=== PATIENT | female | born 1945 | race Caucasian/White ===

== ENCOUNTER 2016-03-31 02:41 | Inpatient (IN) | payer OTHER ==
[2016-03-26 12:58] LABS: MANUAL DIFF NEEDED? NO; URINE MICRO REVIEW NEEDED? NO; URINE SOURCE CLEAN CATCH
[2016-03-26 13:07] LABS: BILIRUBIN URINE NEGATIVE (NEGATIVE); BLOOD URINE NEGATIVE (NEGATIVE); COLOR YELLOW; GLUCOSE URINE NEGATIVE (NEGATIVE); LEUKOCYTES URINE NEGATIVE (NEGATIVE); NITRITE URINE NEGATIVE (NEGATIVE); PH URINE 5.5; PROTEIN URINE TRACE mg/dL (NEGATIVE); SP GRAVITY URINE 1.031; TURBIDITY URINE HAZY (CLEAR); UROBILINOGEN URINE NORMAL (NORMAL)
[2016-03-26 13:11] LABS: BASO% 0.7 % (0.0-0.8); EOS# 0.27 X1000 (0.0-0.7); EOS% 4.4 % (0.0-10.0); HEMATOCRIT 43.8 % (37.0-47.0); HEMOGLOBIN 14.4 g/dL (12.0-16.0); LYMPH# 1.02 X1000 (1.2-3.4); LYMPH% 16.7 % (20.5-51.1); MCHC 32.9 g/dL (33-37); MCV 103.5 FL (81-99); MONO# 0.44 X1000 (0.11-0.59); MONO% 7.2 % (1.7-9.3); MPV 10.1 FL (7.4-10.4); PLT 226 X1000 (130-400); RBC 4.23 XMIL (4.2-5.4)
[2016-03-26 13:13] LABS: UR EPITHELIAL CELLS >10 /HPF (<10); URINE BACTERIA 2+ /HPF; URINE RBC <10 /HPF (<10); URINE WBC <10 /HPF (<10)
[2016-03-26 13:17] LABS: INR 0.97; PROTIME 10.3 Seconds (9.2-11.7); PTT 23.3 Seconds (22.0-36.0)
[2016-03-26 13:24] LABS: AGAP 12; BUN 15 mg/dL (8-22); CALCIUM 8.9 mg/dL (8.8-10.2); CHLORIDE 102 mmol/L (98-107); COSMO 284; POTASSIUM 4.3 mmol/L (3.5-5.1); SODIUM 141 mmol/L (136-145); TCO2 27 mmol/L (25-35)
--- NOTE | 2016-03-27 05:28 | EKG Report ---
Test Performed on : 03/26/2016 12:52:19 PM Test Reason : PAT Blood Pressure : / mmHG Vent. Rate : 075 BPM Atrial Rate : 075 BPM P-R Int : 156 ms QRS Dur : 078 ms QT Int : 424 ms P-R-T Axes : 069 046 070 degrees QTc Int : 473 ms Normal sinus rhythm. Nonspecific T wave abnormality - flat in AVL Nonspecific ST and T wave abnormality V1-V2 (no compare available) - clinical correlation recommended [facility] EKG No previous ECGs available Confirmed by Rusty Oshea DO ([id number]) on 03/30/2016 3:24:39 PM
[2016-03-31] MEDS ORDERED: REGLAN ONE (11:23)
[2016-03-31] MEDS ORDERED: COLACE ONE (11:23)
[2016-03-31] MEDS ORDERED: PEPCID ONE ×2 (11:23→11:44)
[2016-03-31] MEDS ORDERED: LYRICA ONE (11:23)
[2016-03-31] MEDS ORDERED: LR 1,000 ML ONE ×2 (11:24→16:23)
[2016-03-31] MEDS ORDERED: KEFZOL 1 GM/D5W 50 ML ONE (11:24)
--- NOTE | 2016-03-31 11:44 | HISTORY AND PHYSICAL ---
CHIEF COMPLAINT: Left knee pain. HISTORY OF PRESENT ILLNESS: This is a 70-year-old female with a history of gradually increasing pain in her left knee. She had an ORIF of her left patella about 12 years ago. She states it worked well in the beginning but the knee became more severely painful as the time went on. She was evaluated in the office and found to need a left total knee arthroplasty. The surgical procedure, as well as risks and benefits were explained. The patient at this time is ready to proceed. ALLERGIES: Not allergic to any medications. SERIOUS ILLNESSES: None. PAST SURGERIES: Cataract, left patella, back surgery, hysterectomy, appendectomy, and hernia. REGULAR MEDICATIONS: She takes vitamins and supplements but no prescription medicines. REVIEW OF SYSTEMS: HEENT: No history of migraines, dizziness, loss of conscious, CVA. Respiratory: She is a nonsmoker. No history of asthma, emphysema, or shortness of breath. Heart: No history of heart abnormalities. Abdomen: No history of ulcer or digestive disorders. PHYSICAL EXAMINATION: GENERAL APPEARANCE: This is a 70-year-old female, alert and oriented. She has no primary care physician. She has always been in good health without any medical problems. HEENT: Pupils equal, round, reactive. NECK: Good range of motion without adenopathy. RESPIRATORY: Respirations are equal, unlabored, and clear bilaterally. HEART: Regular rate and rhythm. ABDOMEN: Soft, nontender. Bowel sounds present. EXTREMITIES: She complains of pain about her left knee. She has a well-healed anterior incision. She states that she sometimes has difficulty walking and she walks with a limp. Has good sensation and pulses distally. IMPRESSION: Degenerative disease of left knee. PLAN: Admit at this time for a left total knee arthroplasty. Dictated by Lei West RN for Mustapha Trinh MD
[2016-03-31] MEDS ORDERED: TRANEXAMIC ACID ONE (12:51)
[2016-03-31] MEDS ORDERED: CLAVE SECONDARY SET 11953 ONE (12:51)
[2016-03-31] MEDS ORDERED: SODIUM CHLORIDE ONE (12:51)
[2016-03-31] MEDS ORDERED: TORADOL ONE (13:14)
[2016-03-31] MEDS ORDERED: DURAMORPH ONE (13:15)
[2016-03-31] MEDS ORDERED: VANCOMYCIN ONE (13:15)
[2016-03-31] MEDS ORDERED: SODIUM CHLORIDE 0.9% ONE (13:15)
[2016-03-31] MEDS ORDERED: NEOSPORIN G.U. IRRIGANT ONE (13:15)
[2016-03-31] MEDS ORDERED: MARCAINE 0.25% PF/EPI 1:200,000 ONE (13:15)
[2016-03-31] MEDS ORDERED: EXPAREL 1.3% ONE (13:16)
[2016-03-31] MEDS ORDERED: DIPRIVAN 1% 50 ML ONE (13:42)
[2016-03-31] MEDS ORDERED: DIPRIVAN 1% ONE ×2 (13:43→16:09)
[2016-03-31 14:49] LABS: URINE MICRO REVIEW NEEDED? NO; URINE SOURCE CATH
[2016-03-31 15:02] LABS: BILIRUBIN URINE NEGATIVE (NEGATIVE); BLOOD URINE NEGATIVE (NEGATIVE); COLOR YELLOW; GLUCOSE URINE NEGATIVE (NEGATIVE); LEUKOCYTES URINE NEGATIVE (NEGATIVE); NITRITE URINE NEGATIVE (NEGATIVE); PROTEIN URINE NEGATIVE (NEGATIVE); SP GRAVITY URINE 1.023; TURBIDITY URINE CLEAR (CLEAR); UROBILINOGEN URINE NORMAL (NORMAL)
[2016-03-31 15:03] LABS: UR EPITHELIAL CELLS <10 /HPF (<10); URINE BACTERIA NEGATIVE /HPF; URINE RBC <10 /HPF (<10); URINE WBC <10 /HPF (<10)
[2016-03-31] MEDS ORDERED: NS 1,000 ML ONE (16:01)
[2016-03-31] MEDS ORDERED: FENTANYL ONE (16:07)
[2016-03-31] MEDS ORDERED: VERSED ONE (16:09)
[2016-03-31] MEDS: NS 1,000 ML IV SCH (16:19)
[2016-03-31] MEDS ORDERED: OXY IR PO PRN (16:21)
[2016-03-31] MEDS ORDERED: ZOFRAN IV PRN (16:21)
[2016-03-31] MEDS ORDERED: MORPHINE IV PRN (16:21)
[2016-03-31] MEDS ORDERED: AMBIEN PO PRN (16:21)
[2016-03-31] MEDS ORDERED: MILK OF MAGNESIA PO PRN (16:21)
[2016-03-31] MEDS ORDERED: XYLOCAINE-MPF 2% ONE (16:23)
--- NOTE | 2016-03-31 17:19 | OPERATIVE NOTE ---
PROCEDURE DATE: 03/31/2016 PREOPERATIVE DIAGNOSIS: Left knee degenerative joint disease. POSTOPERATIVE DIAGNOSIS: Left knee degenerative joint disease. PROCEDURE PERFORMED: Left total knee arthroplasty using a [employer] orthopedic size 8 femoral component, size 7 tibial baseplate, 11 mm articular insert, and a 29 mm patellar component. ANESTHESIA: Spinal. SURGEON: Mustapha Trinh MD. ASSISTANTS: Estuardo. COMPLICATIONS: None. BLOOD LOSS: Minimal. DRAINS: Hemovac x1. TOURNIQUET TIME: Approximately 1.5 hours. DESCRIPTION PROCEDURE: The patient was brought to the operative suite and placed in supine position. After satisfactory administration of spinal anesthesia, a well-padded tourniquet was placed on the left proximal thigh. Left lower extremity was prepped and draped in usual sterile fashion. Leg was exsanguinated. Tourniquet was insufflated to 350 torr. A longitudinal incision was made beginning at the superior pole of the patella and extended distally to the tibial tuberosity, dissected sharply through the skin. Full-thickness skin flaps were elevated medially and laterally. A medial arthrotomy was the vastus snip. The medial capsule was elevated off the medial tibial plateau. The prepatellar fat pad, ACL, PCL, medial meniscus, lateral meniscus were excised. A drill was entered in the center of the distal femur. An intramedullary guide was placed. Distal cutting block was pinned in place. A distal cut was made with the oscillating saw. The femur was sized to size. A size 8 cutting block was pinned in place. Anterior cuts, chamfer cuts, and posterior condylar cuts were made with the oscillating saw. Marginal osteophytes were removed with rongeur. A box cutting block was pinned into place. Box cuts were made with the oscillating saw and a box osteotome. Posterior condyle osteophytes were removed with a curved osteotome and a rongeur. Attention was then directed to the tibia. A drill was entered in the center of the tibia. An intramedullary guide was placed. Alignment checked with drop davon, referencing off the anterior cortex of the tibia and the second ray of the foot, and taking 2 mm off the low side of the tibia which in this case, was medially. The tibial cutting block was pinned in place and the articular surface of the tibial plateau was removed with oscillating saw. Flexion and extension gaps were checked and balanced at 11 mm. The tibia was sized to a size 7. A size 7 guidewire was used for the fin punch. The tibial trial, femoral trial, and 11 mm articular inserts were placed, taken through range of motion, found to have excellent alignment, balancing, range of motion. Attention was then directed to the patella and 9 mm of the articular surface of the patella removed with the oscillating saw. The patella sized to size 29. Size 29 guide was used to drill peg holes. The lateral facet was chamfered 30 to 45 degrees. Patella trial was placed, taken through range of motion, and found to have excellent patellar tracking. All trials were then removed. Knee was copiously irrigated and dried, being certain all bone debris was removed. The tibial component, femoral component, and patellar component were cemented in place, excess cement being removed with a Ellsworth. Once the cement had hardened, excess cement was again removed with an osteotome. The knee was again copiously irrigated and dried, being certain all bone and cement debris were removed. A drain was placed exiting superolaterally and buried in the lateral gutter. The trial articular insert was removed. The knee was copiously infiltrated with Exparel, including the posterior capsule, anterior capsule, medial and lateral collateral ligaments, anterior musculature, and subcutaneous tissue. The definitive articular insert was locked into place. The knee was again taken through range of motion and again found to have excellent alignment. Drain was placed exiting superolaterally and buried in the lateral gutter. The medial arthrotomy was closed with 0 Vicryl. Skin edges approximated with 2-0 Vicryl. Skin was closed with skin judy and a sterile dressing was applied. The patient tolerated the procedure well without complication. At the end the procedure, all counts correct x2. The patient was transferred to the recovery room in stable condition.
[2016-03-31] MEDS: TYLENOL PO SCH (17:59)
[2016-03-31] MEDS: ULTRAM PO SCH ×2 (17:59→23:44)
[2016-03-31] MEDS ORDERED: FLUZONE QUAD 2016-2017 SYRINGE IM ONE (18:30)
[2016-03-31] MEDS: LYRICA PO SCH (21:12)
[2016-03-31] MEDS: PERIDEX MT SCH (21:12)
[2016-03-31] MEDS: KEFZOL 2 GM/D5W 50 ML IV SCH (21:12)
[2016-03-31] MEDS: COLACE PO SCH (21:13)
[2016-04-01] MEDS: NS 1,000 ML IV SCH ×2 (03:06→06:49)
[2016-04-01] MEDS: TYLENOL PO SCH ×3 (03:06→12:00)
[2016-04-01] MEDS ORDERED: XARELTO PO SCH (06:00)
[2016-04-01] MEDS: ULTRAM PO SCH ×2 (06:18→11:59)
[2016-04-01] MEDS: KEFZOL 2 GM/D5W 50 ML IV SCH (06:18)
[2016-04-01 06:21] LABS: HEMOGLOBIN 12.7 g/dL (12.0-16.0)
[2016-04-01 06:32] LABS: AGAP 11; BUN 9 mg/dL (8-22); CALCIUM 7.9 mg/dL (8.8-10.2); CHLORIDE 102 mmol/L (98-107); COSMO 272; POTASSIUM 4.4 mmol/L (3.5-5.1); SODIUM 137 mmol/L (136-145); TCO2 24 mmol/L (25-35)
[2016-04-01] MEDS ORDERED: PEPCID PO SCH (09:00)
[2016-04-01] MEDS ORDERED: CELEBREX PO SCH (09:00)
[2016-04-01] MEDS ORDERED: THERA M PLUS PO SCH (09:00)
[2016-04-01] MEDS ORDERED: DECADRON IV ONE (09:00)
[2016-04-01] MEDS ORDERED: CALTRATE 600 + D PO SCH (09:00)
[2016-04-01] MEDS: PERIDEX MT SCH (09:08)
[2016-04-01] MEDS: LYRICA PO SCH (09:08)
[2016-04-01] MEDS: COLACE PO SCH (09:09)
[2016-04-01 11:45] VITALS: BP 128/89
--- NOTE | 2016-04-01 20:08 | DISCHARGE SUMMARY ---
ADMISSION DATE: 03/31/2016 DISCHARGE DATE: 04/01/2016 DISCHARGE DIAGNOSIS: Left knee degenerative joint disease status post left total knee arthroplasty. DISCHARGE MEDICATIONS: See discharge medication list. DISPOSITION: Patient discharged home with home physical therapy. DISCHARGE INSTRUCTIONS: 1. Instructed to return for any signs or symptoms of infection or deep venous thrombosis. 2. Instructed to return to see Dr. Trinh next . HOSPITAL COURSE: On the day of admission, the patient underwent a left total knee arthroplasty. Her postoperative course was unremarkable. At discharge, she is afebrile, tolerating a regular diet, ambulating well with physical therapy. Her wound is clean, dry, intact without sign of infection. She is discharged home in stable condition with instructions to follow up as described above.
== END 2016-04-01 16:17 | disposition home health service (06) | DRG 470 ==
LOC: SURHOLD 02:41 → 4N 13:53
PROVIDERS: ADMIT Orthopaedic Surgery; ATTEND Orthopaedic Surgery
PROC: 0SRD0J9 Replacement of Left Knee Joint with Synthetic Substitute, Cemented, Open Approach (ICD-10-PCS; principal; 2016-03-31 13:48)
DX: M17.9 Osteoarthritis of knee, unspecified (principal)
CPT/HCPCS: 80048; 81001; 85014; 85018; 85025; 85610; 85730; 86850; 86900; 86901; 93005; 93010; 94761; 94799; C9290; J0690; J1885; J2250; J2274; J3010; J3370; J7030; J7120; S0020; 97110-GP; 97116-GP; 97530-GP

== ENCOUNTER 2018-08-02 05:26 | Inpatient (IN) ==
--- NOTE | 2018-07-27 09:49 | EKG Report ---
Test Performed on : 07/27/2018 09:37:51 AM Test Reason : pat Blood Pressure : / mmHG Vent. Rate : 079 BPM Atrial Rate : 079 BPM P-R Int : 152 ms QRS Dur : 080 ms QT Int : 390 ms P-R-T Axes : 046 004 043 degrees QTc Int : 447 ms Normal sinus rhythm. Low voltage QRS Borderline ECG When compared with ECG of 26-MAR-2016 12:52, No significant change was found Confirmed by Edy AIKEN, Raghavendra Tyson ([id number]) on 07/28/2018 8:20:47 AM
[2018-07-27 10:23] LABS: URINE SOURCE CLEAN CATCH
[2018-07-27 10:33] LABS: BASO# 0.04 X1000 (0.0-0.2); BASO% 0.4 % (0.0-0.8); EOS# 0.17 X1000 (0.0-0.7); EOS% 1.7 % (0.0-10.0); HEMATOCRIT 41.9 % (37.0-47.0); HEMOGLOBIN 13.6 g/dL (12.0-16.0); LYMPH# 0.97 X1000 (1.2-3.4); LYMPH% 9.5 % (20.5-51.1); MCH 32.5 PG (27-31); MCHC 32.5 g/dL (33-37); MCV 100.2 FL (81-99); MONO# 0.81 X1000 (0.11-0.59); MONO% 7.9 % (1.7-9.3); MPV 9.7 FL (7.4-10.4); NEUT% 79.5 % (42.2-75.2); PLT 197 X1000 (130-400); RBC 4.18 XMIL (4.2-5.4); RDW 14.1 % (11.5-14.5); WBC 10.19 X1000 (4.8-10.8)
[2018-07-27 10:34] LABS: BILIRUBIN URINE NEGATIVE (NEGATIVE); BLOOD URINE NEGATIVE (NEGATIVE); COLOR YELLOW; GLUCOSE URINE NEGATIVE (NEGATIVE); KETONE URINE NEGATIVE (NEGATIVE); LEUKOCYTES URINE NEGATIVE (NEGATIVE); NITRITE URINE NEGATIVE (NEGATIVE); PH URINE 6.5; PROTEIN URINE NEGATIVE (NEGATIVE); TURBIDITY URINE CLEAR (CLEAR); UROBILINOGEN URINE NORMAL (NORMAL)
[2018-07-27 10:36] LABS: UR EPITHELIAL CELLS <10 /HPF (<10); URINE BACTERIA NEGATIVE /HPF; URINE RBC <10 /HPF (<10); URINE WBC <10 /HPF (<10)
[2018-07-27 10:43] LABS: INR 0.95; PROTIME 13.4 Seconds (11.0-16.0)
[2018-07-27 10:44] LABS: PTT 26.7 Seconds (22.3-41.8)
[2018-07-27 11:18] LABS: AGAP 9; BUN 11 mg/dL (8-22); CALCIUM 8.5 mg/dL (8.8-10.2); CHLORIDE 105 mmol/L (98-107); COSMO 280; CREATININE 0.7 mg/dL (0.5-0.9); ESTIMATED GFR > 60; GLUCOSE 87 mg/dL (70-104); POTASSIUM 4.3 mmol/L (3.5-5.1); SODIUM 141 mmol/L (136-145); TCO2 27 mmol/L (25-35)
[2018-07-27 11:31] LABS: HEMOGLOBIN A1C 5.3 % (4.8-6.0)
[2018-08-02] MEDS ORDERED: REGLAN ONE (06:33)
[2018-08-02] MEDS ORDERED: LYRICA ONE (06:33)
[2018-08-02] MEDS ORDERED: LR 1,000 ML ONE (06:33)
[2018-08-02] MEDS ORDERED: CELEBREX ONE (06:33)
[2018-08-02] MEDS ORDERED: COLACE ONE (06:33)
[2018-08-02] MEDS ORDERED: PEPCID ONE (06:33)
[2018-08-02] MEDS ORDERED: KEFZOL 1 GM/D5W 1 GM/50 ML IVPB ONE (06:33)
[2018-08-02] MEDS ORDERED: DIPRIVAN 1% 500 MG/50 ML BOTTLE ONE (06:43)
[2018-08-02] MEDS ORDERED: XYLOCAINE-MPF 2% ONE (06:47)
[2018-08-02] MEDS ORDERED: FENTANYL ONE (06:48)
[2018-08-02] MEDS ORDERED: DURAMORPH ONE (06:56)
[2018-08-02] MEDS ORDERED: MARCAINE 0.25% PF ONE (06:56)
[2018-08-02] MEDS ORDERED: TORADOL ONE (06:56)
[2018-08-02] MEDS ORDERED: SODIUM CHLORIDE 0.9% ONE (06:57)
[2018-08-02] MEDS ORDERED: CYKLOKAPRON 1,000 MG/NS 1,000 MG/100 ML IVPB ONE (06:57)
[2018-08-02] MEDS ORDERED: EXPAREL 1.3% ONE (06:58)
[2018-08-02] MEDS ORDERED: NEOSPORIN G.U. IRRIGANT ONE (06:58)
[2018-08-02] MEDS ORDERED: OFIRMEV 1000 MG/ISOTONIC SOLN 1,000 MG/100 ML BOTTLE ONE (07:52)
[2018-08-02] MEDS ORDERED: ZOFRAN ONE (07:52)
[2018-08-02] MEDS ORDERED: DECADRON ONE (07:52)
[2018-08-02] MEDS ORDERED: EPHEDRINE ONE (08:05)
[2018-08-02 08:36] LABS: BILIRUBIN URINE NEGATIVE (NEGATIVE); BLOOD URINE NEGATIVE (NEGATIVE); COLOR YELLOW; GLUCOSE URINE NEGATIVE (NEGATIVE); KETONE URINE NEGATIVE (NEGATIVE); LEUKOCYTES URINE NEGATIVE (NEGATIVE); NITRITE URINE NEGATIVE (NEGATIVE); PH URINE 5.5; PROTEIN URINE NEGATIVE (NEGATIVE); SP GRAVITY URINE 1.017; TURBIDITY URINE CLEAR (CLEAR); URINE SOURCE CATH; UROBILINOGEN URINE NORMAL (NORMAL)
[2018-08-02 08:38] LABS: UR EPITHELIAL CELLS <10 /HPF (<10); URINE BACTERIA NEGATIVE /HPF; URINE RBC <10 /HPF (<10); URINE WBC <10 /HPF (<10)
--- NOTE | 2018-08-02 09:15 | OPERATIVE NOTE ---
PROCEDURE DATE: 08/02/2018 PREOPERATIVE DIAGNOSIS: Right hip degenerative joint disease. POSTOP DIAGNOSIS: Right hip degenerative joint disease. PROCEDURE: Right anterior total hip arthroplasty using [facility] size 11 high offset stem with a -4, 36 mm head, a 52 mm hemispherical shell with a 40 and 25 mm cancellous screw and a 36 mm inside diameter liner. ANESTHESIA: Spinal. SURGEON: Mustapha Trinh MD. POLYSOMNOGRAPHIC TECHNICIAN: MINA Nieves who was present throughout the case. The field assistant was critical for exposure, placing the implants, decision making and closure. Her assistance was critical for the success of the case. BLOOD LOSS: Minimal. DRAIN: Hemovac x1. PROCEDURE: Patient brought to the operative suite and placed in supine position. After successful administration of spinal anesthesia, patient was placed on the OSI table in the usual position for right hip. The right hip was then prepped and draped in usual sterile fashion. A longitudinal incision was made beginning 3 cm distal and 3 cm lateral to the anterior-superior iliac spine, extending distally and slightly laterally 8 cm, dissected sharply through the skin and subcutaneous tissue down to the tensor fascia. The tensor fascia was incised, dissected bluntly down deep tensor fascia. Deep tensor fascia was incised and circumflex vessels were electrocauterized exposing the anterior capsule. A T capsulotomy was performed exposing the femoral neck. The femoral neck cut was made with the oscillating saw. The femoral head was removed with the power corkscrew. The labrum was resected. The acetabulum was serially reamed to a size 52 to accept a 52 cup. The 52 cup was then driven into place in the proper amount inclination and anteversion. Then two 6.5 cancellous screws were placed, a 25 mm superiorly and a 40 mm posterior superiorly. Then a 36 mm inside diameter liner was locked onto the shell. Once this was completed attention was directed to the femur. It was externally rotated, extended, adducted, and elevated out of the wound with the hook on the OSI bed. The lateral neck was rongeured. The canal was serially broached to a size 11. A size 11 high offset -4 neck length stem was trialed and found be excellent leg length, fit and fill of the stem and offset, and stability of the hip. The trial was removed. The definitive stem was seated onto the femur and then the ceramic -4 neck length head was seated onto the Aj taper. The hip was again reduced. It was found again to be in excellent position. The hip was copiously infiltrated with Exparel, including the posterior capsule, anterior capsule, anterior musculature, and subcutaneous tissue. The anterior capsule was repaired with 0 V-Loc. The skin edges. A drain was placed deep to the tensor fascia and buried around the stem neck. The hip was again copiously irrigated with normal saline containing irrigant and Vashe irrigation and again the Exparel was placed in the posterior capsule, anterior capsule, anterior musculature, and subcutaneous tissue. Once hemostasis was obtained with electrocautery the tensor fascia was closed with 0 V-Loc. The anterior capsule was repaired with 0 V-Loss of consciousness and the tensor fascia was closed with 0 V-Loc and the skin edge approximated with 2-0 Vicryl, closed with Monocryl and a Prineo dressing. Sterile dressing was applied. The patient tolerated the procedure well without complication. At the end of the procedure all counts correct x2. The patient was transferred to the recovery room stable condition. cc: Mustapha Trinh MD
[2018-08-02] MEDS ORDERED: NS 1,000 ML ONE (09:24)
[2018-08-02] MEDS ORDERED: OXY IR PO PRN ×2 (09:30)
[2018-08-02] MEDS ORDERED: MILK OF MAGNESIA PO PRN (09:30)
[2018-08-02] MEDS ORDERED: MORPHINE IV PRN ×3 (09:30)
[2018-08-02] MEDS ORDERED: NS 1,000 ML IV SCH (09:30)
[2018-08-02] MEDS ORDERED: ZOFRAN IV PRN (09:30)
[2018-08-02] MEDS: ULTRAM PO SCH ×3 (10:48→20:47)
[2018-08-02] MEDS ORDERED: CYKLOKAPRON 1,000 MG in NS 100 ML IV ONE (14:56)
[2018-08-02] MEDS: TYLENOL PO SCH ×2 (15:28→20:46)
[2018-08-02] MEDS: KEFZOL 1 GM/D5W 1 GM/50 ML IVPB IV SCH ×2 (16:00→20:48)
[2018-08-02] MEDS: PERIDEX MT SCH (20:46)
[2018-08-02] MEDS: COLACE PO SCH (20:47)
[2018-08-02] MEDS ORDERED: LIPITOR PO SCH (21:00)
[2018-08-02] MEDS ORDERED: LYRICA PO SCH (21:00)
[2018-08-03] MEDS: KEFZOL 1 GM/D5W 1 GM/50 ML IVPB IV SCH (02:09)
[2018-08-03] MEDS: TYLENOL PO SCH ×2 (02:14→08:42)
[2018-08-03] MEDS: ULTRAM PO SCH (05:43)
[2018-08-03] MEDS ORDERED: XARELTO PO SCH (06:00)
[2018-08-03 06:29] LABS: HEMATOCRIT 33.6 % (37.0-47.0); HEMOGLOBIN 10.8 g/dL (12.0-16.0)
[2018-08-03 07:05] LABS: AGAP 10; BUN 10 mg/dL (8-22); CHLORIDE 102 mmol/L (98-107); COSMO 271; CREATININE 0.6 mg/dL (0.5-0.9); ESTIMATED GFR > 60; GLUCOSE 137 mg/dL (70-104); POTASSIUM 5.2 mmol/L (3.5-5.1); SODIUM 135 mmol/L (136-145); TCO2 23 mmol/L (25-35)
[2018-08-03 07:29] VITALS: BP 119/64
[2018-08-03] MEDS: PERIDEX MT SCH (08:42)
[2018-08-03] MEDS: COLACE PO SCH (08:43)
[2018-08-03] MEDS ORDERED: ASPIRIN PO SCH (09:00)
[2018-08-03] MEDS ORDERED: PEPCID PO SCH (09:00)
[2018-08-03] MEDS ORDERED: CELEBREX PO SCH (09:00)
[2018-08-03] MEDS ORDERED: DECADRON IV ONE (09:00)
--- NOTE | 2018-08-04 07:07 | DISCHARGE SUMMARY ---
ADMISSION DATE: 08/02/2018 DISCHARGE DATE: 08/03/2018 DISCHARGE DIAGNOSES: Right hip degenerative joint disease status post right anterior total hip arthroplasty. DISCHARGE MEDICATIONS: See discharge med list. DISPOSITION: The patient discharged home with home health physical therapy, instructed to return for any signs or symptoms of infection or deep venous thrombosis. Instructed to return to see Dr. Trinh next . HOSPITAL COURSE: On day of admission, patient underwent a right anterior total hip arthroplasty. Her postoperative course was unremarkable. At discharge he is afebrile, tolerating a regular diet, ambulating well with physical therapy. She has walked greater than 90 feet. She has had minimal output from her drain of 90 mL. Her hemoglobin is 10.8, her hematocrit is 33.6. She is discharged home in stable condition, instructed to follow up as described above. cc: Mustapha Trinh MD
== END 2018-08-03 10:25 | disposition home or self-care (01) | DRG 470 ==
LOC: SURHOLD 05:26 → 4N 08:38
PROVIDERS: ADMIT Orthopaedic Surgery; ATTEND Orthopaedic Surgery
CPT/HCPCS: 76000; 80048; 81001; 82040; 83036; 85014; 85018; 85025; 85610; 85730; 86850; 86900; 86901; 93005; 93010; 94761; 94799; 97116; 97162; 97530; A9270; C9290; J0131; J0690; J1100; J1885; J2274; J2275; J2405; J3010; J7030; J7120; Q9974; S0020

== ENCOUNTER 2018-08-11 16:25 | Inpatient (IN) ==
--- NOTE | 2018-08-11 17:42 | PROVIDER DOCUMENTATION ---
HPI-Syncope/Dizziness - General Stated Complaint: SYNCOPE Time Seen by Provider: 08/11/18 17:32 Source: patient Allergies/Adverse Reactions: Patient Allergies Allergy/AdvReac Type Severity Reaction Status Date / Time No Known Allergies Allergy Verified 03/31/16 11:41 Home Medications: Home Medication List Medication Instructions Recorded Confirmed Last Taken Type Aspirin 81 mg PO DAILY 07/27/18 07/27/18 07/20/18 08:00 History Atorvastatin Calcium [Lipitor] 10 mg PO DAILY 07/27/18 08/02/18 07/31/18 21:00 History Meloxicam [Mobic] 15 mg PO DAILY 07/27/18 07/27/18 07/26/18 09:00 History ATORVAstatin [Lipitor] 10 mg PO HS #0 tab 08/03/18 Unknown Rx Acetaminophen [Tylenol] 1,000 mg PO Q6H tab 08/03/18 Unknown Rx Docusate Sodium [Colace] 100 mg PO BID cap 08/03/18 Unknown Rx Famotidine [Pepcid] 20 mg PO DAILY tab 08/03/18 Unknown Rx Oxycodone I.r. [Oxy Ir] 5 mg PO Q3H PRN PRN #40 tab 08/03/18 Unknown Rx Pregabalin [Lyrica] 75 mg PO BID #60 cap 08/03/18 Unknown Rx Rivaroxaban [Xarelto] 10 mg PO Q24H #30 tab 08/03/18 Unknown Rx Tramadol [Ultram] 100 mg PO Q6H #120 tab 08/03/18 Unknown Rx - History of Present Illness-Syncope/Dizzy Nature of Presenting Problem: 73 YOF WAS SENT IN VIA EMS FOR A SYNCOPAL EPISODE. ON EXAM THE PATIENT IS CONFUSED. SHE DENIES SYNCOPE AND REPORTS SHE DIDNT WANT COME. THERE IS NO FAMILY AT BEDSIDE AT THIS TIME If witnessed syncope, by whom?: SPOUSE Onset/Duration: reports: just prior to arrival Timing: reports: gone now Symptoms prior to episode: reports: unknown Context: reports: unknown Location of injury. (If syncope resulted in an injury.): reports: none Current Symptoms: reports: none/feels normal Recently Seen Here or By Another Healthcare Provider: No Review of Systems - Adult - REVIEW OF SYSTEMS - ADULT Constitutional: reports: no symptoms reported. denies: see HPI, chills, fever, fatique, night sweats, weight gain, weight loss, other Eyes: reports: no symptoms reported. denies: see HPI, discharge, dry eyes, decreased vision, blurred vision, double vision, eye pain, redness, other Ears, Nose, Mouth & Throat: reports: no symptoms reported. denies: see HPI, ear discharge, ear pain, hearing loss, tinnitus, epistaxis, sinus problem, nose pain, loose teeth, mouth/dental pain, mouth swelling, hoarseness, throat pain, throat swelling, other Cardiovascular: reports: edema. denies: no symptoms reported, see HPI, chest pain, heart murmur, irregular heart rate, orthopnea, palpitations, poor circulation, PND, syncope, other Respiratory: reports: no symptoms reported. denies: see HPI, chronic cough, cough, dyspnea on exertion, excessive sputum production, hemoptysis, pleurisy, shortness of breath, wheezing, other Gastrointestinal: reports: no symptoms reported. denies: see HPI, abdominal pain, hematemesis, constipation, diarrhea, difficulty swallowing, frequent heartburn, nausea, poor appetite, rectal bleeding, vomiting, other Genitourinary: reports: no symptoms reported. denies: see HPI, dysuria, discharge, frequency, flank pain, frequent UTI's, hematuria, hesitency, incontinence, urinary retention, urgency, other Musculoskeletal: reports: no symptoms reported. denies: see HPI, bone pain, back pain, frequent leg cramps, joint pain, joint swelling, muscle aches, muscle weakness, neck pain, other Integumentary: reports: no symptoms reported. denies: see HPI, hives, hair loss, itching, mole changes, nail changes, rash, skin sores/ulcer, skin thickening, other Neurological: reports: syncope, other (CONFUSION). denies: no symptoms reported, see HPI, ataxia, dizziness/vertigo, headache/migraines, loss of balance, numbness, paresthesia, seizure, slurred speech, tremors Psychiatric: reports: no symptoms reported. denies: see HPI, anxiety, anti- depressant use, alcohol/drug dependence, depression, emotional problems, insomnia, panic attacks, suicidal thoughts, other Endocrine: reports: no symptoms reported. denies: see HPI, change in skin pigment, excessive sweating, goiter, cold intolerance, heat intolerance, increased hunger, increased thirst, polyuria, other Hematologic/Lymphatic: reports: no symptoms reported Allergic/Immunologic: reports: no symptoms reported. denies: see HPI, allergic reactions, allergic rhinitis, asthma, eczema, food allergy, frequent infections, hay fever, hives, positive PPD, urticaria, other Past History - Adult - PAST MEDICAL HISTORY-ADULT Review of Records: reports: Nursing Assessment Review, Social history reviewed & non-contributory. Physical Exam-General - PHYSICAL EXAM-ADULT Initial Vital Signs Reviewed: Yes - CONSTITUTIONAL General Appearance: alert, no apparent distress - EYES Eyes: PERRL/EOMI - HEAD, EARS, NOSE, MOUTH & THROAT HENMT: normocephalic/atraumatic, moist mucous membranes, normal ENT inspection - NECK Neck: non-tender, full range of motion, supple - RESPIRATORY Respiratory: chest non-tender, lungs clear, normal breath sounds, no pleuratic chest pain, no respiratory distress, no accessory muscle use - CARDIOVASCULAR Cardiovascular: normal peripheral pulses, regular rate, rhythm. negative: no edema - GASTROINTESTINAL (ABDOMEN) Abdominal Exam: normal bowel sounds, non tender, soft - LYMPHATIC Lymphatic: no adenopathy - MUSCULOSKELETAL Back Exam: normal inspection Extremity: normal range of motion, non-tender - SKIN Integumentary: normal color, normal turgor, warm/dry, other (SURGICAL INCISION TO THE ANTERIOR R HIP, WITH SURGICAL DRESSING IN PLACE. NO DRAINAGE PRESENT) - NEUROLOGIC Neurologic: grossly normal - PSYCHIATRIC Psych/Mental Status: normal mood/affect (PATIENT IS PLEASENT, CONFUSED AT TIMES BUT IS ORIENTED TO PERSON AND PLACE), other. negative: oriented x 3 Progress - PLAN OF CARE/RESULTS Progress/Plan/Lab Results: Vital Signs - 8 hr 08/11/18 17:32 08/11/18 17:35 08/11/18 17:36 Temperature 99.8 F H Pulse Rate 88 Pulse Rate [Sitting] Pulse Rate [Standing] Pulse Rate [Supine] Respiratory Rate 20 Blood Pressure 116/61 106/60 Blood Pressure [Sitting] Blood Pressure [Standing] Blood Pressure [Supine] O2 Sat by Pulse Oximetry 98 92 L 08/11/18 17:40 08/11/18 17:51 08/11/18 17:52 Temperature 99.3 F Pulse Rate 87 88 86 Pulse Rate [Sitting] Pulse Rate [Standing] Pulse Rate [Supine] Respiratory Rate 20 19 17 Blood Pressure 121/58 Blood Pressure [Sitting] Blood Pressure [Standing] Blood Pressure [Supine] O2 Sat by Pulse Oximetry 92 L 97 96 08/11/18 18:00 08/11/18 18:02 08/11/18 18:10 Temperature Pulse Rate 85 87 86 Pulse Rate [Sitting] Pulse Rate [Standing] Pulse Rate [Supine] Respiratory Rate 15 17 16 Blood Pressure 111/60 Blood Pressure [Sitting] Blood Pressure [Standing] Blood Pressure [Supine] O2 Sat by Pulse Oximetry 95 95 95 08/11/18 18:35 08/11/18 18:40 08/11/18 19:00 Temperature Pulse Rate 90 83 89 Pulse Rate [Sitting] Pulse Rate [Standing] Pulse Rate [Supine] Respiratory Rate 24 20 16 Blood Pressure Blood Pressure [Sitting] Blood Pressure [Standing] Blood Pressure [Supine] O2 Sat by Pulse Oximetry 96 97 95 08/11/18 19:02 08/11/18 19:33 08/11/18 19:45 Temperature Pulse Rate 84 113 H 100 H Pulse Rate [Sitting] Pulse Rate [Standing] Pulse Rate [Supine] Respiratory Rate 15 19 16 Blood Pressure 125/43 115/78 134/62 Blood Pressure [Sitting] Blood Pressure [Standing] Blood Pressure [Supine] O2 Sat by Pulse Oximetry 94 L 90 L 93 L 08/11/18 19:49 08/11/18 19:55 08/11/18 20:04 Temperature Pulse Rate 112 H 116 H Pulse Rate [Sitting] 107 H Pulse Rate [Standing] 111 H Pulse Rate [Supine] 101 H Respiratory Rate 21 12 Blood Pressure 89/58 141/61 Blood Pressure [Sitting] 106/62 Blood Pressure [Standing] 89/58 Blood Pressure [Supine] 134/62 O2 Sat by Pulse Oximetry 94 L 93 L 08/11/18 20:33 08/11/18 20:38 Temperature Pulse Rate 99 H 98 H Pulse Rate [Sitting] Pulse Rate [Standing] Pulse Rate [Supine] Respiratory Rate 16 17 Blood Pressure 134/75 130/75 Blood Pressure [Sitting] Blood Pressure [Standing] Blood Pressure [Supine] O2 Sat by Pulse Oximetry 93 L 93 L Laboratory Results - last 24 hr 08/11/18 08/11/18 08/11/18 17:39 17:40 17:40 WBC 12.39 H RBC 3.31 L Hgb 10.8 L Hct 33.1 L MCV 100.0 H MCH 32.6 H MCHC 32.6 L RDW Std Deviation 14.2 Plt Count 363 MPV 9.5 Immature Gran % (Auto) 2.9 H Neut % (Auto) 77.1 H Lymph % (Auto) 4.0 L Dickinson % (Auto) 14.0 H Eos % (Auto) 1.2 Baso % (Auto) 0.8 Immature Gran # (Auto) 0.36 H Neut # (Auto) 9.56 H Lymph # (Auto) 0.49 L Dickinson # (Auto) 1.73 H Eos # (Auto) 0.15 Baso # (Auto) 0.10 PT INR PTT (Actin FS) Sodium 139 Potassium 5.0 Chloride 98 Carbon Dioxide 29 Anion Gap 12 BUN 12 Creatinine 0.8 Estimated GFR/1.73 m2 > 60 BUN/Creatinine Ratio 15 Glucose 122 H POC Glucose 131 H Calculated Osmolality 279 Calcium 8.3 L Creatine Kinase 39 Troponin T [id number] Pept Urine Source Urine Color Urine Turbidity Urine pH Ur Specific Cooper Urine Protein Ur Glucose (Stick) Ur Ketones (Stick) Urine Blood Urine Nitrite Urine Bilirubin Urobilinogen Dipstick Urine Leukocytes Urine WBC (Auto) Urine RBC (Auto) U Epithel Cells (Auto) Urine Bacteria (Auto) Urine Crystals Small Round Cells Urine Casts Urine Yeast-like Cells Urine Opiates Screen Ur Oxycodone Screen Ur Methadone, Qual Ur Barbiturates Screen Ur Phencyclidine Scrn Ur Amphetamines Screen U Benzodiazepines Scrn Urine Cocaine Screen U Cannabinoids Screen 08/11/18 08/11/18 08/11/18 17:40 17:40 17:40 WBC RBC Hgb Hct MCV MCH MCHC RDW Std Deviation Plt Count MPV Immature Gran % (Auto) Neut % (Auto) Lymph % (Auto) Dickinson % (Auto) Eos % (Auto) Baso % (Auto) Immature Gran # (Auto) Neut # (Auto) Lymph # (Auto) Dickinson # (Auto) Eos # (Auto) Baso # (Auto) PT 14.3 INR 1.03 PTT (Actin FS) 31.3 Sodium Potassium Chloride Carbon Dioxide Anion Gap BUN Creatinine Estimated GFR/1.73 m2 BUN/Creatinine Ratio Glucose POC Glucose Calculated Osmolality Calcium Creatine Kinase Troponin T < 0.010 [id number] Pept 167 Urine Source Urine Color Urine Turbidity Urine pH Ur Specific Cooper Urine Protein Ur Glucose (Stick) Ur Ketones (Stick) Urine Blood Urine Nitrite Urine Bilirubin Urobilinogen Dipstick Urine Leukocytes Urine WBC (Auto) Urine RBC (Auto) U Epithel Cells (Auto) Urine Bacteria (Auto) Urine Crystals Small Round Cells Urine Casts Urine Yeast-like Cells Urine Opiates Screen Ur Oxycodone Screen Ur Methadone, Qual Ur Barbiturates Screen Ur Phencyclidine Scrn Ur Amphetamines Screen U Benzodiazepines Scrn Urine Cocaine Screen U Cannabinoids Screen 08/11/18 08/11/18 18:55 18:55 WBC RBC Hgb Hct MCV MCH MCHC RDW Std Deviation Plt Count MPV Immature Gran % (Auto) Neut % (Auto) Lymph % (Auto) Dickinson % (Auto) Eos % (Auto) Baso % (Auto) Immature Gran # (Auto) Neut # (Auto) Lymph # (Auto) Dickinson # (Auto) Eos # (Auto) Baso # (Auto) PT INR PTT (Actin FS) Sodium Potassium Chloride Carbon Dioxide Anion Gap BUN Creatinine Estimated GFR/1.73 m2 BUN/Creatinine Ratio Glucose POC Glucose Calculated Osmolality Calcium Creatine Kinase Troponin T [id number]-A-Jamwqwoojuc Pept Urine Source CLEAN CATCH Urine Color YELLOW Urine Turbidity HAZY Urine pH 6.0 Ur Specific Cooper 1.037 Urine Protein 50 A Ur Glucose (Stick) NEGATIVE Ur Ketones (Stick) 10 A Urine Blood NEGATIVE Urine Nitrite NEGATIVE Urine Bilirubin NEGATIVE Urobilinogen Dipstick 4 A Urine Leukocytes MODERATE A Urine WBC (Auto) 20-40 A Urine RBC (Auto) <10 U Epithel Cells (Auto) >10 A Urine Bacteria (Auto) 2+ Urine Crystals CA OXALATE PRESENT Small Round Cells Not Reportable Urine Casts GRANULAR PRESENT Urine Yeast-like Cells Not Reportable Urine Opiates Screen NONE DETECTED Ur Oxycodone Screen PRESUMPTIVE POSITIVE A Ur Methadone, Qual PRESUMPTIVE POSITIVE A Ur Barbiturates Screen NONE DETECTED Ur Phencyclidine Scrn NONE DETECTED Ur Amphetamines Screen NONE DETECTED U Benzodiazepines Scrn NONE DETECTED Urine Cocaine Screen NONE DETECTED U Cannabinoids Screen NONE DETECTED Orders Category Date Time Status Finger Stick Blood Sugar (ED) DIRECTED Care 08/11/18 17:32 Completed Orthostatic Vital Signs NOW Care 08/11/18 17:31 Active Saline Loc NOW Care 08/11/18 17:[address] HEAD W/O CONTRAST [CT] Stat Exams 08/11/18 17:31 Completed cxr [CHEST-1 VIEW] [RAD] Stat Exams 08/11/18 17:37 Completed BASIC METABOLIC PANEL [CHEM] Stat Lab 08/11/18 17:40 Completed CBC WITH ELECTRONIC DIFF [HEME] Stat Lab 08/11/18 17:40 Completed CK PROFILE [SP CHEM] Stat Lab 08/11/18 17:40 Completed PRO B-NATRIURETIC PEPTIDE Stat Lab 08/11/18 17:40 Completed PROTIME WITH INR [COAG] Stat Lab 08/11/18 17:40 Completed PTT [COAG] Stat Lab 08/11/18 17:40 Completed TROPONIN T Stat Lab 08/11/18 17:40 Completed UA NIMS W/REFLEX CULT [URINALYSIS] Stat Lab 08/11/18 18:55 Completed URINE CULTURE [RM] Routine Lab 08/11/18 20:01 Received URINE DRUG SCREEN Stat Lab 08/11/18 18:55 Completed URINE MANUAL MICROSCOPIC [URINALYSIS] Stat Lab 08/11/18 18:55 Completed 0.9% Sodium Chloride Inj [Ns] 1,000 ml Med 08/11/18 19:59 Discontinued IV 999 mls/hr CefTRIAXONE [Rocephin] 1 gm Med 08/11/18 20:34 Discontinued 0.9% Sodium Chloride Inj [Ns] 50 ml IV NOW EKG [EKG] Stat Ther 08/11/18 17:31 Ordered Transfer/Admit Order [TRANSFER] Routine Transfer 08/11/18 20:48 Ordered Result Diagrams: 08/11/18 17:40 08/11/18 17:40 - EKG 1 EKG Read and Signed by:: Nic Nicholas EKG Interpretation (*Must complete 3 of following elements*): Abnormal Rate: 77 Rhythm: NSR [place]: left - XRAY 1 XRAY Study: Chest Impression: Normal, See EMR Report (FINDINGS: The lungs are normally expanded and clear. Heart size and mediastinal contours are normal. No pneumothorax or pleural effusion. IMPRESSION: Negative exam.) - CT/MRI 1 CT Study: Head Impression: Abnormal, See EMR Report (FINDINGS: There is mild diffuse atrophy. There are some patchy periventricular white matter lucencies bilaterally compatible with age-indeterminate ischemia. No intracranial mass or hemorrhage. The skull is intact. The sinuses are clear. IMPRESSION: Cerebral atrophy. Age-indeterminate, presumably chronic cerebral white matter ischemia.) - CONSULTS/PCP/HOSPITALIST Notification #1 *Consult/PCP/Hospitalist*: DR. FREY Consult Disposition: Admit Departure - Departure Date of Disposition Decision: 08/11/18 Time of Disposition Decision: 20:48 DIAGNOSIS: UTI (urinary tract infection), Orthostatic hypotension Disposition: ADMITTED INPATIENT 09 Certified Medical Emergency: Emergent Condition: Stable Referrals and Follow-Ups: Jerry Arita MD [Primary Care Provider] - - Critical Care Note This patient required my direct & personal management of CC.: No Attestation - Physician/ LALITO Attestation Patient care was provided by Advanced Practice Provider:: Yes Advanced Practice Provider:: Citlaly Jamison Advanced Practice Provider documentation review:: The Mid-level provider documentation, treatment plan and medical decision making was reviewed by the physician who agrees with all treatment and medical decision making by the MLP. The physician spent face to face time with patient:: No Advanced Practice Provider documentation review:: Supervising physician onsite and consulted in the evaluation and care of this patient. The physician did not have a face to face encounter with the patient.
[2018-08-11 18:13] LABS: BASO% 0.8 % (0.0-0.8); EOS# 0.15 X1000 (0.0-0.7); EOS% 1.2 % (0.0-10.0); HEMATOCRIT 33.1 % (37.0-47.0); HEMOGLOBIN 10.8 g/dL (12.0-16.0); IMM GRAN# 0.36 X1000 (0.0-0.04); IMM GRAN% 2.9 % (0.0-0.5); LYMPH# 0.49 X1000 (1.2-3.4); MCH 32.6 PG (27-31); MCHC 32.6 g/dL (33-37); MONO# 1.73 X1000 (0.11-0.59); MPV 9.5 FL (7.4-10.4); NEUT# 9.56 X1000 (1.4-6.5); NEUT% 77.1 % (42.2-75.2); PLT 363 X1000 (130-400); RBC 3.31 XMIL (4.2-5.4); RDW 14.2 % (11.5-14.5); WBC 12.39 X1000 (4.8-10.8)
[2018-08-11 18:17] LABS: INR 1.03; PROTIME 14.3 Seconds (11.0-16.0)
[2018-08-11 18:18] LABS: PTT 31.3 Seconds (22.3-41.8)
[2018-08-11 18:36] LABS: AGAP 12; BUN 12 mg/dL (8-22); CALCIUM 8.3 mg/dL (8.8-10.2); CHLORIDE 98 mmol/L (98-107); CK PROFILE 39 U/L (24-173); COSMO 279; CREATININE 0.8 mg/dL (0.5-0.9); ESTIMATED GFR > 60; GLUCOSE 122 mg/dL (70-104); SODIUM 139 mmol/L (136-145); TCO2 29 mmol/L (25-35)
--- NOTE | 2018-08-11 18:44 | Diag Imaging Result Doc PS360 ---
CHEST-1 VIEW - 08/11/2018 INDICATION: LOW SATS ON ARRIVAL COMPARISON: None FINDINGS: The lungs are normally expanded and clear. Heart size and mediastinal contours are normal. No pneumothorax or pleural effusion. IMPRESSION: Negative exam. Electronically signed by Jamarcus Schmidt 08/11/2018 6:42 PM
[2018-08-11 19:06] LABS: URINE SOURCE CLEAN CATCH
--- NOTE | 2018-08-11 19:09 | Diag Imaging Result Doc PS360 ---
CT HEAD W/O CONTRAST - 08/11/2018 INDICATION: SYNCOPE COMPARISON: None FINDINGS: There is mild diffuse atrophy. There are some patchy periventricular white matter lucencies bilaterally compatible with age-indeterminate ischemia. No intracranial mass or hemorrhage. The skull is intact. The sinuses are clear. IMPRESSION: Cerebral atrophy. Age-indeterminate, presumably chronic cerebral white matter ischemia. This exam was performed using automated exposure control, adjustment of mA or kV according to patient size, and/or use of iterative reconstruction technique Electronically signed by Jamarcus Schmidt 08/11/2018 7:07 PM
[2018-08-11 19:12] LABS: BILIRUBIN URINE NEGATIVE (NEGATIVE); BLOOD URINE NEGATIVE (NEGATIVE); COLOR YELLOW; GLUCOSE URINE NEGATIVE (NEGATIVE); KETONE URINE 10 mg/dL (NEGATIVE); LEUKOCYTES URINE MODERATE (NEGATIVE); NITRITE URINE NEGATIVE (NEGATIVE); PROTEIN URINE 50 mg/dL (NEGATIVE); SP GRAVITY URINE 1.037; TURBIDITY URINE HAZY (CLEAR); UROBILINOGEN URINE 4 mg/dL (NORMAL)
[2018-08-11 19:33] LABS: UR AMPHETAMINES QUAL NONE DETECTED (NONE DETECT); UR BARBITUATES QUAL NONE DETECTED (NONE DETECT); UR BENZODIAZEPIN QUAL NONE DETECTED (NONE DETECT); UR CANNABINOIDS QUAL NONE DETECTED (NONE DETECT); UR COCAINE QUAL NONE DETECTED (NONE DETECT); UR METHADONE QUAL PRESUMPTIVE POSITIVE (NONE DETECT); UR OPIATES QUAL NONE DETECTED (NONE DETECT); UR OXYCODONE QUAL PRESUMPTIVE POSITIVE (NONE DETECT); UR PCP QUAL NONE DETECTED (NONE DETECT)
[2018-08-11 19:40] LABS: UR EPITHELIAL CELLS >10 /HPF (<10); URINE BACTERIA 2+ /HPF; URINE RBC <10 /HPF (<10); URINE WBC 20-40 /HPF (<10)
[2018-08-11 19:41] LABS: URINE CASTS GRANULAR PRESENT; URINE CRYSTALS CA OXALATE PRESENT
[2018-08-11] MEDS ORDERED: NS 1,000 ML IV ONE (19:59)
[2018-08-11] MEDS ORDERED: ROCEPHIN 1 GM in NS 50 ML IV ONE (20:34)
[2018-08-12] MEDS ORDERED: ZOFRAN IV PRN (03:25)
[2018-08-12] MEDS ORDERED: TYLENOL PO PRN (03:25)
[2018-08-12] MEDS ORDERED: NS 1,000 ML IV SCH (03:30)
[2018-08-12 04:41] LABS: ALLEN TEST YES; BE 4.4 mmoll (-3.0-3.0); BLOOD TYPE ARTERIAL; HCO3-(ACT) 28.2 mmoll (20.0-26.0); METHB 0.5 % (0.0-1.5); O2(CT) 12.7 mL/dL (15.0-23.0); PCO2(98.6) 44 mmHg (35-45); PO2(98.6) 57 mmHg (60-100); SAMPLE BLOOD; SAO2 92.2 % (95.0-100.0); pH(98.6) 7.43 (7.35-7.45)
[2018-08-12 04:42] LABS: MODALITY ROOM AIR
--- NOTE | 2018-08-12 06:40 | Diag Imaging Result Doc PS360 ---
CT ANGIOGRM PULMONARY ARTERIES - 08/12/2018 INDICATION: Syncope,Hypoxia,Recent R Hip Surgery,RLE Swelling TECHNIQUE: Axial CT images were obtained after administering intravenous contrast. Coronal MIP images were generated. COMPARISON: None FINDINGS: There is no pulmonary embolism. Heart size is normal with no pericardial effusion. There is moderate calcified atherosclerotic plaque of the aortic arch and descending aorta. There is moderate bibasilar atelectasis. There is mucus plugging of bilateral lower lobe segmental airways left greater than right. Otherwise no dense infiltrates. Upper abdominal images appear unremarkable. There are vertebroplasty changes at the lower thoracic spine. There is a compression fracture at T4 as well, with about 50% loss of height. IMPRESSION: Negative for pulmonary embolism. Mucous plugging of segmental airways in the lower lobes. Dependent atelectasis in the lower lobes. This exam was performed using automated exposure control, adjustment of mA or kV according to patient size, and/or use of iterative reconstruction technique Electronically signed by Jamarcus Schmidt 08/12/2018 6:38 AM
--- NOTE | 2018-08-12 07:13 | EKG Report ---
Test Performed on : 08/11/2018 5:47:08 PM Test Reason : SYNCOPE Blood Pressure : / mmHG Vent. Rate : 084 BPM Atrial Rate : 084 BPM P-R Int : 152 ms QRS Dur : 080 ms QT Int : 374 ms P-R-T Axes : 048 -33 023 degrees QTc Int : 441 ms Normal sinus rhythm. Left axis deviation Abnormal ECG When compared with ECG of 27-JUL-2018 09:37, No significant change was found Unconfirmed Result
[2018-08-12 07:31] LABS: BASO# 0.07 X1000 (0.0-0.2); BASO% 0.8 % (0.0-0.8); EOS# 0.27 X1000 (0.0-0.7); EOS% 3.1 % (0.0-10.0); HEMATOCRIT 28.8 % (37.0-47.0); HEMOGLOBIN 9.2 g/dL (12.0-16.0); IMM GRAN# 0.19 X1000 (0.0-0.04); IMM GRAN% 2.2 % (0.0-0.5); LYMPH# 0.96 X1000 (1.2-3.4); LYMPH% 11.1 % (20.5-51.1); MCH 32.3 PG (27-31); MCHC 31.9 g/dL (33-37); MCV 101.1 FL (81-99); MONO% 12.7 % (1.7-9.3); NEUT# 6.05 X1000 (1.4-6.5); NEUT% 70.1 % (42.2-75.2); PLT 331 X1000 (130-400); RBC 2.85 XMIL (4.2-5.4); RDW 14.3 % (11.5-14.5); WBC 8.64 X1000 (4.8-10.8)
[2018-08-12 07:58] VITALS: BP 122/60
[2018-08-12 08:08] LABS: AGAP 9; ALBUMIN 2.6 g/dL (3.5-5.0); ALKALINE PHOSPHATASE 74 U/L (32-104); BUN 10 mg/dL (8-22); CALCIUM 7.5 mg/dL (8.8-10.2); CHLORIDE 97 mmol/L (98-107); COSMO 265; CREATININE 0.6 mg/dL (0.5-0.9); ESTIMATED GFR > 60; GLUCOSE 96 mg/dL (70-104); GOT 17 U/L (10-30); GPT 9 U/L (10-36); POTASSIUM 4.1 mmol/L (3.5-5.1); SODIUM 133 mmol/L (136-145); TCO2 27 mmol/L (25-35); TOTAL BILIRUBIN 0.48 mg/dL (0.20-1.00); TOTAL PROTEIN 5.2 g/dL (6.3-8.3)
[2018-08-12] MEDS ORDERED: LOVENOX SUBQ SCH (09:45)
--- NOTE | 2018-08-12 14:39 | HISTORY AND PHYSICAL ---
PRIMARY CARE PROVIDER: Dr. Jerry Arita. CHIEF COMPLAINT: Syncope. HISTORY OF PRESENT ILLNESS: Ms. Hahn is a 73-year-old female who does have a past medical history most notable for previous TIA and hyperlipidemia who did just recently undergo a right anterior total hip arthroplasty secondary to right hip degenerative joint disease. This was performed on 08/02/2018. Patient was discharged home and has been undergoing physical therapy. Though yesterday just prior to arrival, the patient states that she was going to get out of the car going from a sitting to a standing position. She opened the door and went to step out. She almost stood up when she had a syncopal episode. She states she woke up, and her family members were there. She said she was trying to figure out what happened. She even remembers the ambulance crew getting there, and that she actually knew one of the ambulance members. Though she states that from the time that she was loaded up on the stretcher until she got to the hospital she does not remember any of this. In the ER on the exam, they noted the patient was confused. Evidently the initial report from family the patient of having possible hallucinations. There was mention in the nurses note in the ER that the patient's stated that when she started hallucinating she had a syncopal episode. Upon arrival to the ED, she was alert and oriented x2, and also her O2 saturation was 82 percent on room air. She was placed on nasal cannula and her oxygen saturation did improve. The patient denied to me of having any dizziness or headache. She denied any chest pain, shortness of breath or cough. She also denies any previous history of known lung disease or ever having to be oxygen dependent. Upon reviewing her previous visits, vital signs that were documented showed her having a oxygen saturation of 97 to 100 percent on room air on the previous visits. She denies any fever, body aches, or chills. She denies any abdominal pain, nausea, vomiting or diarrhea. She denied any dysuria but did report urinary frequency. She is reporting some right hip pain. The patient is status post a right hip replacement. She reports that at physical therapy that she has been having difficulty doing their exercises. The patient does have swelling noted to this extremity. This is worse than on the left though she states this has been like this since she was discharged from the hospital. Other than her right hip pain and her urinary frequency, the patient denies any other symptoms or not feeling well prior to her syncopal episode. Upon evaluation in the ER, she did have some slight leukocytosis with a white blood cell count [id number] and she has been afebrile. Hemoglobin and hematocrit were stable. Chemistries are pretty unremarkable. CK and troponin were negative. Serum glucose was 122. Urine drug screen was positive for oxycodone and methadone. I can see where she has recently had a prescription for oxycodone, but the methadone I am not sure about. This may be a false positive. She does appear to have urinary tract infection and moderate leukocytes, and 2+ bacteria. I did perform a CT of the head, which showed no acute intracranial abnormality. Chest x-ray which showed no acute abnormality as well with a negative exam. EKG shows normal sinus rhythm with a left axis deviation and a rate of 84 with a QTC of 441,000. Upon my examination, the patient was a slightly poor historian when it came to her medications and why she was taking some of them as well as some of her past medical history though other than this, she did answer questions appropriately. She was alert and oriented to person, place, time, and situation. She was able to answer questions and follow commands. Neurological exam did not reveal anything focal. She does have some weakness when trying to raise her right leg though. She is status post right hip replacement. This is likely secondary to that. The patient was uncertain whether or not she was still taking the Xarelto that she got prescribed after her hip surgery at this time. In the ER, the patient's oxygen saturation was reading low and was 84% at times. The patient's fingers were very cold. We did place a forehead pulse oximeter. Her oxygen saturations did come up to like 93 and 94%. I felt this may have been a machine error with the pulse oximeter though then her O2 sats did dip back down into the 84 and 85 range. We did obtain arterial blood gas to evaluate her true oxygen saturation, and it did show that it was 92 percent on room air. The patient has no known history of ever having hypoxia and requiring oxygen in the past. She has had a recent surgery and does have swelling of her lower extremity that is much more significant than on the left. She did have a syncopal episode. We will go ahead and order a CTA to rule out possible pulmonary embolism, and a venous ultrasound right lower extremity to rule out DVT. Also, in the ER they did static blood pressures and the did tilt some when she went from a sitting to a standing position, her heart rate increased from 107 to 111. Her blood pressure did go from 62 to 89. Her standing blood pressures prior to both of these was 134/62. She did receive a 140 bolus in the ER since that time. Her blood pressures have been maintained within normal limits. The patient will be admitted inpatient for admission. REVIEW OF SYSTEMS: A 14 point Review of Systems was conducted on the patient and all were negative except for the pertinent positives mentioned in the HPI above. PAST MEDICAL HISTORY: 1. Hyperlipidemia. 2. TIA. PAST SURGICAL HISTORY: 1. Bilateral cataract surgery. 2. Left knee surgery. 3. Back surgery. 4. Hysterectomy. 5. Appendectomy. 6. Hernia repair. 7. Status post right anterior total hip arthroplasty for right hip degenerative joint disease on 08/02/[address] Trinh. SOCIAL HISTORY: The patient does not live at home. She is a smoker though has not smoked for many years. 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 She also reports she does have daily alcohol use with 2 glasses of wine a day. There is no known illicit drug use. FAMILY HISTORY: She states her mother and father does not have any known medical problems to her knowledge. ALLERGIES: The patient has no known allergies. HOME MEDICATIONS: 1. Aspirin 81 mg p.o. daily. 2. Lipitor 20 mg p.o. at bedtime. 3. Gabapentin 300 mg p.o. t.i.d. 4. Meloxicam 15 mg p.o. daily. 5. Oxy IR 5 mg p.o. q.6 h p.r.n. 6. Tramadol 100 mg p.o. q.6 h. 7. We are trying to discern whether or not the patient is still taking the Xarelto for which she was discharged on by Dr. Trinh likely secondary to her recent hip surgery though this is unable to be confirmed at this time. DIAGNOSTIC DATA: White blood cell count 12,390, hemoglobin 10.8, hematocrit 33.1, platelet count of 363,000. PT 14.3, INR 1.03, PTT 31.3, sodium 139, potassium 5, chloride 98, serum bicarb of 29, BUN 12, creatinine 0.8. Glucose 122. Calcium 8.3. CK 39. Troponin less than 0.01. ProBNP was 167. Arterial blood gases were obtained on room air with a pH 7.43, pCO2 44, PO2 57. HC03 is 28.2 with a base excess of 4.4, and O2 saturation of 92.2. Urinalysis was obtained via clean catch, and was positive for moderate leukocytes, 20 to 40 white blood cells, and 2+ bacteria. Urine drug screen was positive for oxycodone and methadone. EKG showed a normal sinus rhythm with a left axis deviation at a rate of 84 with a QTc of 441. Chest x-ray showed negative exam. CT of the head showed cerebral atrophy, age indeterminate, presumably chronic cerebral white matter ischemia. PHYSICAL EXAMINATION: VITAL SIGNS: Heart rate 81, respirations 16, blood pressure is 104/80 with mean arterial pressure of 86. Oxygen saturation was 92% on nasal cannula at 2 L. GENERAL: Ms. Hahn is a 73-year-old female. She was resting on the ER stretcher. She was in no acute distress. She was awake, alert and able to answer questions appropriately. HEENT: Head is atraumatic, normocephalic. Pupil on the left was round and reactive to light. Pupil on the right was slightly misshapen though was reactive to light. The patient has had previous cataract surgery. Oral mucosa was moist. Oropharynx clear. NECK: Supple. Trachea midline. No carotid bruits noted upon auscultation bilaterally. CARDIOVASCULAR: Patient has S1-S2 present. No murmurs, gallops, rubs appreciated with a regular rate and rhythm. PULMONARY: Patient has symmetrical chest expansion bilaterally. Lung sounds clear to auscultation and bilateral full macdonald. ABDOMEN: Soft, nontender, and nondistended. Bowel sounds are present in all 4 quadrants and were normoactive. EXTREMITIES: No cyanosis noted, though the patient does have some very trace edema noted in bilateral lower extremities though on her right lower extremity she has approximately 2+ pitting edema. This extremity is much more swollen than her left. This may be secondary to her surgery though she has good pulse, motor and sensory intact in all extremities. Radial pulses and pedal pulses were 2+ bilaterally. INTEGUMENTARY: [place], warm, and dry. NEUROLOGICAL: Patient is alert and oriented x4. She has no facial droop noted. No arm drift noted. She had equal muscle strength in hand grasps bilaterally. There was no ataxia present at this time. EOMs are intact. Visual macdonald were intact as well. She is able to move all extremities. She is denying any numbness or tingling. There does not appear to be any focal neurological deficits noted. ASSESSMENT AND PLAN: 1. Syncope. For this, we have performed a CT head which did not show any acute intracranial abnormalities. Chest x-ray was negative as well. The patient was found to be orthostatic. Orthostatic blood pressures were performed in the ER. She may have some mild fluid volume depletion. She also does have a urinary tract infection. She does not have any focal neurological deficits noted at this time though the patient has had recent hip surgery. She does have swelling in her right lower extremity that is greater than her left though this may be related to her surgery though her oxygen saturation has been low in the 84 to 86 range on room air. We thought this may have even been a mechanical air on the pulse oximeter, though we did get arterial blood gas, which did show the O2 saturation was only 92% with nasal cannula at 2 L. Given her recent surgery, her hypoxia and syncope, we will go ahead and order a CT angiogram pulmonary artery to rule out pulmonary embolism as well as a right lower extremity venous Doppler. She will be placed on the medical floor with telemetry. She will have vital signs q.4 hours. We will await results of the CT and venous Doppler studies and continue to follow. 2. Mild fluid volume depletion. The patient did receive a L of normal saline bolus in the ER. We will continue with normal saline at 100 mL/h. We will continue to follow. 3. Urinary tract infection. The patient is symptomatic. She is reporting urinary frequency. We have placed the patient on antibiotic coverage of Rocephin. A urine culture has been placed. We will await those results. 4. Possibility of mild encephalopathy prior to arrival and upon arrival to the ER though this does appear to have completely resolved now. We will continue to monitor this. CT of the head without contrast was negative. 5. Status post right hip replacement. The patient does have what looks to be some type of a surgical Tegaderm over her incision site, but this looks good. It does not have any erythema, warmth, swelling or drainage noted. The patient has been reporting difficulty with tolerating physical therapy. We have placed a consult with Dr. Trinh given that the patient reports that she was supposed to go today or tomorrow for her postoperative check. We will also await any recommendations for possible physical therapy changes or adjustments. 6. Deep vein thrombosis prophylaxis provided with Lovenox 1 mg subcutaneous 24 hours. 7. Patient has been placed on the medical floor telemetry. She will have vital signs q.4 h. Strict intake and output. Incentive spirometry. She will be on a heart healthy diet. Further orders and recommendations pending hospital course, diagnostic studies and physician evaluation. Dictated by NELSON Watkins for Prosper Kamara MD cc: Prosper Kamara MD
[2018-08-12] MEDS ORDERED: LIPITOR PO SCH (21:00)
[2018-08-12] MEDS ORDERED: ROCEPHIN 1 GM in NS 50 ML IV SCH (22:00)
--- NOTE | 2018-08-13 07:55 | DISCHARGE SUMMARY ---
ADMISSION DATE: 08/11/2018 DISCHARGE DATE: 08/12/2018 DISPOSITION: Home. FOLLOW-UP: Jerry Arita MD. (Primary Care Physician) ADMISSION DIAGNOSIS: Syncope. DIAGNOSES AT THE TIME OF DISCHARGE: 1. Syncope on presentation secondary to orthostatic hypotension. 2. Clinical volume depletion. 3. Macrocytic anemia. 4. Recent right anterior total hip arthroplasty. Surgical site looks clean. DISCHARGE MEDICATIONS: 1. Meloxicam 50 mg p.o. daily. 2. Oxycodone. 3. Gabapentin 300 3 times per day. 4. Aspirin 81 mg p.o. daily. 5. Atorvastatin 20 mg p.o. at bedtime. PRESENTING COMPLAINT: Falling down. HISTORY OF PRESENTING COMPLAINT: Ms. Hahn is a 73-year-old female who presented to the emergency department because of a fall. Apparently, she said she was coming out of her car and she just lost it. She was coming out of the car. She started feeling nauseated, she got a tunnel vision, and she tried to hold onto something, but then she just went down. There was a significant other who was in the car with her could not get her up so they called EMS who brought her to the emergency department. Upon presenting to the emergency department, Ms. Hahn was evaluated, and was found to be slightly hypotensive with a blood pressure at some point was 89/58. She did have orthostatic vitals done which supine blood pressure was 134/62. When she stood up, it went down to 89/58, which was remarkably positive. Ms. Hahn was subsequently admitted for orthostatic hypotension. She was adequately hydrated overnight. This morning she feels a whole lot better. She did have a CT scan of the chest which was unremarkable except for age-related cerebral atrophy. A chest x- ray was unremarkable. A CTA of the lung was negative for pulmonary embolism. This morning Ms. Hahn refers to be feeling a whole lot better. She denies any more syncopal episode. She feels great. She has been eating well. Her vitals are stable. We think Ms. Hahn is clinically stable for discharge. We did advise her to be careful with the pain medications that she has been on, which could have compounded to her clinical presentation. TIME SPENT: Time spent for discharge is 37 minutes. cc: MD Jerry Rodarte MD
--- NOTE | 2018-08-13 13:18 | CONSULTATION ---
DATE OF CONSULTATION: 08/12/2018 CHIEF COMPLAINT: Syncope. HISTORY OF PRESENT ILLNESS: Ms. Hahn is a 72-year-old female who underwent a total hip arthroplasty last week. She presented to the ER this week with confusion and syncope, and was diagnosed with UTI. I was asked to see her in orthopedic consultation. PAST MEDICAL HISTORY: Hyperlipidemia and TIA. PAST SURGICAL HISTORY: Includes cataract, right hip, left knee, back surgery, hysterectomy, appendectomy, and hernia repair. SOCIAL HISTORY: She is a past smoker. She drinks 2 glasses of wine a day. FAMILY HISTORY: Noncontributory. REVIEW OF SYSTEMS: A 14 point review reveals the patient is positive for syncope and confusion. Otherwise, no other pertinent positives are present. PHYSICAL EXAMINATION: Reveals a well-developed, well-nourished female. She is alert, oriented and cooperative to the exam. She is actually apparently much better today than she was yesterday. When she was admitted today, she seems her normal self. Her wound is healing nicely. There is no sign of infection. She has good range of motion of her hip and leg is neurovascularly intact. ASSESSMENT: Stable right total hip arthroplasty. PLAN: She will continue physical therapy. She can be discharged home when cleared medically. She will keep her previously scheduled follow-up appointment. I have removed her Prineo dressing today. cc: Mustapha Trinh MD [facility]
--- NOTE | 2018-08-13 19:16 | Extremity Venous Study ---
PROCEDURE NAME: Venous U/S Right Leg - 08/12/2018 REQUESTING PHYSICIAN: Dr. Loo. MANAGER MERCHANDISING: Kiko. INDICATION: 1. Edema, right leg. 2. History of hip surgery. EQUIPMENT: [employer] Vivid E9 ultrasound system and 9L-D transducer. FINDINGS: Images of the right lower extremity venous system with comparison shot of the left common femoral vein were obtained in both sagittal and transverse planes. Doppler was used to evaluate veins for spontaneity, phasicity, respiratory excursion and digital augmentation. Results: Normal venous compression, normal venous flow. No obvious superficial or deep venous thrombosis noted. INTERPRETATION: Essentially normal right lower extremity venous study. cc: Lance Sevilla MD
== END 2018-08-12 11:55 | disposition home or self-care (01) | DRG 641 ==
LOC: SUPCPDRO → ED 16:25 → SUATTDRO 22:37 → EDIPHOLD 22:37 → 3N 08-12 03:24 → EDIPHOLD 08-12 06:15 → 4N 08-12 07:22
PROVIDERS: ATTEND Internal Medicine
CPT/HCPCS: 70450; 71010; 71045; 71275; 80048; 80053; 80101; 80301; 80307; 80324; 80345; 80346; 80353; 80358; 80361; 80365; 81001; 82550; 82805; 82948; 83880; 83992; 84484; 85025; 85610; 85730; 87088; 93005; 93971; 94761; 94799; 96361; 96374; 99285; G0431; G0434; G0479; G0480; J0696; J1650; J7030; Q9967; XXXXX